=== PATIENT | male | born 1955 | race Caucasian/White ===

== ENCOUNTER 2017-03-17 15:46 | Inpatient (IN) | payer OTHER ==
[~2017-03-17] VITALS: Ht 167.6 cm; Wt 94.1 kg
[2017-03-17] MEDS: DIPHTHERIA/TETANUS/PERTUSSIS 0.5 ML SYR/VIAL IM. ONE ×2 (16:00→16:14)
[2017-03-17] MEDS ORDERED: SODIUM CHLORIDE 0.9% 1000ML 1,000 ML IV STA (16:00)
[2017-03-17] MEDS ORDERED: ONDANSETRON INJ 2 MG/ML 2 ML VIAL IV STA ×2 (16:00→16:44)
[2017-03-17] MEDS ORDERED: LIDO/EPINEPHRINE/SOD BICARB 20 ML VIAL INFIL ONE (16:08)
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
[2017-03-17] MEDS ORDERED: OPTIRAY 320 IV PRN (16:15)
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
[2017-03-17 16:28] LABS: BASO % 0.1 %; BASO ABS # 0.02 K/uL (0-0.2); COMPLETE YES; EOS % 0.8 %; HEMATOCRIT 50.7 % (42-52); IG% 0.6 %; LYMPH % 6.2 %; LYMPH ABS # 0.88 K/uL (1.2-3.4); MEAN CELL VOLUME 88.6 fL (80-100); MEAN CORPUSCULAR HEMOGLOBIN 30.9 pg (25-34); MEAN CORPUSCULAR HGB CONC 34.9 g/dl (32-36); MEAN PLATELET VOLUME 10.7 fL (7.4-10.4); MONO % 5.7 %; NEUT % 86.6 %; PLATELET COUNT 186 K/uL (130-400); RED BLOOD COUNT 5.72 M/uL (4.7-6.1); WHITE BLOOD COUNT 14.27 K/uL (4.8-10.8)
[2017-03-17 16:32] LABS: ISTAT CREATININE 1.5 mg/dl (0.6-1.3); ISTAT IONIZED CALCIUM 1.06 mmol/l (1.12-1.32)
[2017-03-17 16:40] LABS: PARTIAL THROMBOPLASTIN RATIO 0.8; PROTHROMBIN TIME (PATIENT) 10.7 SECONDS (9.0-12.0)
[2017-03-17 16:44] LABS: ALT/SGPT 464 U/L (12-78); BLOOD UREA NITROGEN 22 mg/dl (7-18); BUN/CREATININE RATIO 14.4 (10-20); CALCIUM 8.7 mg/dl (8.5-10.1); CARBON DIOXIDE 25 mmol/L (21-32); CHLORIDE 108 mmol/L (98-107); GLUCOSE 136 mg/dl (70-99); POTASSIUM 3.5 mmol/L (3.5-5.1); SODIUM 141 mmol/L (136-145)
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
[2017-03-17] MEDS: MoRPHine SULFATE 4 MG/ML 1 ML CARP\\VIAL IV PRN ×2 (16:49→17:13)
[2017-03-17 16:50] LABS: ALKALINE PHOSPHATASE 60 U/L (45-117); AST/SGOT 433 U/L (15-37); CKMB/CK RATIO 1.5 (0-3.0)
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
[2017-03-17] MEDS ORDERED: CRS10 PO (17:34)
[2017-03-17] MEDS ORDERED: HYDROmorphone INJ 1 MG/ML SYR IV STA ×2 (17:34→18:15)
[2017-03-17] MEDS ORDERED: TELM1TAB PO (17:35)
[2017-03-17] MEDS ORDERED: D5W AND 1/2NSS 1,000 ML IV SCH (18:21)
[2017-03-17] MEDS ORDERED: ACETAMINOPHEN 325 MG TAB PO PRN (18:30)
[2017-03-17] MEDS ORDERED: ONDANSETRON INJ 2 MG/ML 2 ML VIAL IV PRN (18:30)
[2017-03-17 19:02] LABS: URINE APPEARANCE CLEAR (CLEAR); URINE BILIRUBIN NEG (NEG); URINE COLOR YELLOW; URINE EPITHELIAL CELL AUTO 20-30 /lpf (0-5); URINE NITRITE NEG (NEG); URINE SPECIFIC GRAVITY 1.034 (1.000-1.030); UROBILINOGEN NEG (NEG)
[2017-03-17 19:03] LABS: MANUAL MICROSCOPIC REQUIRED? NO; REVIEW REQ? NO
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
[2017-03-17 20:27] VITALS: BP 187/99; PULSE 70; TEMP 36.9; O2SAT 92; Ht 167.6 cm; Wt 94.1 kg
[2017-03-17] MEDS: D5W AND 1/2NSS + 20MEQ KCL 1,000 ML IV SCH (20:43)
[2017-03-17 21:33] VITALS: BP 155/92; PULSE 70; O2SAT 92
[2017-03-17] MEDS: MoRPHine SULFATE 2 MG/ML CARP IV PRN (21:43)
[2017-03-17 23:29] VITALS: BP 158/85; PULSE 69; TEMP 37; O2SAT 94
[2017-03-18] VITALS (10 sets, daily range): BP systolic 117–166; BP diastolic 72–90; PULSE 67–85; TEMP 36.6–37; O2SAT 93–99
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
[2017-03-18] MEDS: OXYCODONE/ACETAMINOPHEN 5-325 TAB PO PRN ×2 (02:52→07:16)
[2017-03-18] MEDS: MoRPHine SULFATE 2 MG/ML CARP IV PRN ×2 (02:53→07:17)
[2017-03-18] MEDS: D5W AND 1/2NSS + 20MEQ KCL 1,000 ML IV SCH ×3 (04:40→19:47)
[2017-03-18] MEDS: ROSUVASTATIN CALCIUM 10 MG TAB PO SCH (07:17)
[2017-03-18 07:34] LABS: BASO % 0.1 %; BASO ABS # 0.01 K/uL (0-0.2); COMPLETE YES; EOS % 0.4 %; HEMATOCRIT 47.3 % (42-52); IG% 0.3 %; LYMPH % 7.6 %; LYMPH ABS # 1.07 K/uL (1.2-3.4); MEAN CELL VOLUME 90.6 fL (80-100); MEAN CORPUSCULAR HEMOGLOBIN 30.1 pg (25-34); MEAN CORPUSCULAR HGB CONC 33.2 g/dl (32-36); MONO % 6.8 %; NEUT % 84.8 %; PLATELET COUNT 191 K/uL (130-400); RED BLOOD COUNT 5.22 M/uL (4.7-6.1)
[2017-03-18] MEDS ORDERED: MoRPHine SULFATE 1 MG/ML 50 ML PCA CASS ONE (07:44)
--- NOTE | 2017-03-18 07:49 | DIAGNOSTIC IMAGING REPORT ---
CHEST ONE VIEW PORTABLE HISTORY: PNEUMOTHORAX. SUPPOSED TO BE DONE AT 0530 COMPARISON: Chest 03/17/2017. Chest CT 03/17/2017. FINDINGS: The patient's tiny right pneumothorax seen on the recent chest CT is not identified on this study. Small right pleural effusion persists. Bibasilar linear densities are again noted. The heart remains mildly enlarged. Nondisplaced right rib fractures are also better appreciated on the recent chest CT. IMPRESSION: 1. The patient's right pneumothorax is not identified. 2. Small right pleural effusion/hemothorax persists. 3. Bibasilar densities, unchanged. 4. Nondisplaced right rib fractures are better appreciated on the recent chest CT. Electronically signed by: Tucker Dean M.D. 03/18/2017 7:47 AM Dictated Date/Time: 03/18/2017 7:45 AM
[2017-03-18 07:59] LABS: BUN/CREATININE RATIO 14.3 (10-20); CALCIUM 8.5 mg/dl (8.5-10.1); CREATININE 1.2 mg/dl (0.60-1.40)
[2017-03-18] MEDS ORDERED: SODIUM CHLORIDE 0.9% 1000ML 1,000 ML IV SCH (08:00)
[2017-03-18 08:07] LABS: PHOSPHORUS 2.7 mg/dl (2.5-4.9)
[2017-03-18] MEDS: MoRPHine SULFATE 1 MG/ML 50 ML PCA CASS IV PRN ×2 (09:34→10:39)
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
[2017-03-18 10:03] LABS: ALT/SGPT 316 U/L (12-78); AST/SGOT 156 U/L (15-37)
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
[2017-03-18 10:19] LABS: ESTIMATED AVERAGE GLUCOSE 128 mg/dl; HA1C FLAG Normal (Normal)
--- NOTE | 2017-03-18 11:42 | SURGERY PROGRESS NOTE ---
DATE: 03/18/2017 Mr. Graham is in a tremendous amount of pain. I started him on a [employer]YSTER C[employer]URIST pump this morning which made him a bit more lethargic. He has been seen by Dr. Rodney Vu from a pain standpoint and we are adjusting his medications. As he is going to be in pain, Dr. Vu has recommended a thoracic epidural which I agree with. His x-ray this morning shows a very small right pleural effusion but does not appear to be increasing. He is able to take fairly good breath, but he is in a considerable amount of pain. At this point, pain management will be his major issue. His creatinine has improved from 1.5-1.2. We will give him Toradol preliminarily. His hemoglobin is stable.
[2017-03-18] MEDS ORDERED: RAPID SEQUENCE INDUCTION BAG ONE (14:12)
[2017-03-18] MEDS ORDERED: HYDROmorphone INJ 2 MG/ML SYR/VIAL ONE (14:13)
[2017-03-18] MEDS ORDERED: OPTIRAY 320 IV PRN (14:15)
[2017-03-18 14:28] LABS: ISTAT ALLEN TEST Pass; ISTAT ARTERIAL BLOOD GAS HCO3 26 meq/L (19-24); ISTAT ARTERIAL BLOOD GAS PCO2 73 mmHg (35-46); ISTAT ARTERIAL BLOOD GAS PO2 95 mmHg (80-95); ISTAT ARTERIAL BLOOD GAS pH 7.17 (7.35-7.45); ISTAT CARBON DIOXIDE 28 mEq/l (24-31); ISTAT SITE R Radial
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
[2017-03-18] MEDS ORDERED: ICU PROTOCOL FOR HYPERGLYCEMIA PRN (15:30)
--- NOTE | 2017-03-18 15:56 | SURGERY PROGRESS NOTE ---
DATE: 03/18/2017 Mr. Childress was seen again this afternoon. He was in a considerable amount of pain. He was seen by Dr. Rodney Vu from the pain management service and we discussed a thoracic epidural which is to be placed later. We held off on the Toradol for the concern for bleeding until the epidural was in. The patient was a "code purple" as he became quite lethargic and probably had a combination of having too many narcotics on board and some CO2 narcosis. He was given Narcan quickly recovered; however, he had a tremendous amount of pain in his back and his CT scans were repeated. He does have some more atelectasis of the right lower lobe, a small amount of fluid in his chest, but would not intervene at this time. The patient is going to have significant pain which is going to cause other problems. I talked to Dr. Vu and he will be inserting a thoracic epidural hopefully later today, if not tomorrow. He is stable hemodynamically now, he awake and alert, although he is in quite a bit of pain. This is a fine line we will walk between keeping his pain under control and not over sedating him. BYRON
[2017-03-18 16:12] LABS: BASO % 0.1 %; BASO ABS # 0.01 K/uL (0-0.2); COMPLETE YES; EOS % 0.2 %; HEMATOCRIT 44.7 % (42-52); IG% 0.2 %; LYMPH % 5.3 %; LYMPH ABS # 0.87 K/uL (1.2-3.4); MEAN CELL VOLUME 90.5 fL (80-100); MEAN CORPUSCULAR HEMOGLOBIN 30.4 pg (25-34); MEAN CORPUSCULAR HGB CONC 33.6 g/dl (32-36); MEAN PLATELET VOLUME 10.6 fL (7.4-10.4); MONO % 3.6 %; NEUT % 90.6 %; PLATELET COUNT 158 K/uL (130-400); RED BLOOD COUNT 4.94 M/uL (4.7-6.1); WHITE BLOOD COUNT 16.52 K/uL (4.8-10.8)
[2017-03-18] MEDS ORDERED: MIDAZOLAM HCL 1 MG/ML 2ML VIAL ONE (16:28)
[2017-03-18] MEDS ORDERED: FENTANYL CITRATE INJ 50 MCG/1 ML 2 ML VIAL ONE (16:30)
[2017-03-18 16:32] LABS: CALCIUM 7.6 mg/dl (8.5-10.1); CREATININE 1.1 mg/dl (0.60-1.40); MAGNESIUM 2.1 mg/dl (1.8-2.4); POTASSIUM 4.2 mmol/L (3.5-5.1)
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
[2017-03-18 16:53] LABS: ALB/GLOB RATIO 1.2 (0.9-2); CKMB/CK RATIO 0.7 (0-3.0); PHOSPHORUS 2.8 mg/dl (2.5-4.9)
[2017-03-18] MEDS ORDERED: HYDROmorphone INJ 0.5 MG/0.5 ML SYR IV PRN (17:00)
[2017-03-18] MEDS ORDERED: MIDAZOLAM HCL 5 MG/ML 1 ML VIAL IV STA (17:07)
[2017-03-18] MEDS ORDERED: LACTATED RINGER'S 1000ML 500 ML IV PRN (17:11)
[2017-03-18] MEDS ORDERED: SODIUM CHLORIDE 0.9% 1000ML 1,000 ML IV PRN (17:11)
[2017-03-18] MEDS ORDERED: METOCLOPRAMIDE HCL INJ 20 MG in SODIUM CHLORIDE 0.9% 50ML 50 ML IV PRN (17:15)
[2017-03-18] MEDS ORDERED: KETOROLAC TROMETHAMINE 30 MG/ML VIAL IV. PRN (17:15)
[2017-03-18] MEDS ORDERED: EpHEDrine SULFATE INJ 50 MG/ML AMP IV PRN (17:15)
[2017-03-18] MEDS ORDERED: DiphenhydrAMINE HCL 50 MG/ML VIAL IV PRN (17:15)
[2017-03-18] MEDS ORDERED: NALBUPHINE HCL INJ 10 MG/ML AMP IV PRN (17:15)
[2017-03-18] MEDS ORDERED: ONDANSETRON INJ 2 MG/ML 2 ML VIAL IV PRN (17:15)
[2017-03-18] MEDS ORDERED: NALOXONE HCL INJ 0.4 MG/1 ML VIAL/CARP IV PRN (17:15)
[2017-03-18] MEDS ORDERED: FENTANYL CITRATE INJ 50 MCG/1 ML 2 ML VIAL IV ONE (17:15)
[2017-03-18] MEDS ORDERED: MoRPHine SULFATE 2 MG/ML CARP IV PRN (17:15)
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
[2017-03-18] MEDS: NSS EPI PRN (18:02)
[2017-03-18] MEDS: MORPHINE SUL EPI PRN (18:02)
[2017-03-18] MEDS: ALBUT/IPRATROP 3MG/0.5MG NEB 3 ML VIAL INH SCH (20:24)
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
[2017-03-18] MEDS: NO NARCOTICS OR SEDATIVES SCH (23:56)
[2017-03-19] VITALS (17 sets, daily range): BP systolic 121–158; BP diastolic 64–93; PULSE 74–100; TEMP 37–38; O2SAT 91–96
[2017-03-19] MEDS: D5W AND 1/2NSS + 20MEQ KCL 1,000 ML IV SCH (03:44)
[2017-03-19 05:55] LABS: BASO % 0.1 %; BASO ABS # 0.01 K/uL (0-0.2); COMPLETE YES; EOS % 0.9 %; IG% 0.4 %; LYMPH % 10.6 %; MEAN CELL VOLUME 92.4 fL (80-100); MEAN CORPUSCULAR HEMOGLOBIN 30.6 pg (25-34); MEAN CORPUSCULAR HGB CONC 33.1 g/dl (32-36); MEAN PLATELET VOLUME 10.4 fL (7.4-10.4); MONO % 9.7 %; NEUT % 78.3 %; PLATELET COUNT 160 K/uL (130-400); RED BLOOD COUNT 4.87 M/uL (4.7-6.1); WHITE BLOOD COUNT 10.35 K/uL (4.8-10.8)
[2017-03-19] MEDS: ENOXAPARIN 40 MG/0.4 ML SYR SQ SCH (06:11)
[2017-03-19 06:26] LABS: BUN/CREATININE RATIO 11.7 (10-20); CALCIUM 8.2 mg/dl (8.5-10.1); CREATININE 1.1 mg/dl (0.60-1.40); MAGNESIUM 2.2 mg/dl (1.8-2.4); POTASSIUM 4.2 mmol/L (3.5-5.1)
[2017-03-19 06:41] LABS: PHOSPHORUS 2.3 mg/dl (2.5-4.9)
[2017-03-19] MEDS: ALBUT/IPRATROP 3MG/0.5MG NEB 3 ML VIAL INH SCH ×4 (07:09→20:34)
[2017-03-19] MEDS: NO NARCOTICS OR SEDATIVES SCH ×3 (07:42→23:38)
[2017-03-19] MEDS: HYDROCHLOROTHIAZIDE 25 MG TAB PO SCH (07:43)
[2017-03-19] MEDS: TELMISARTAN 40 MG TAB PO SCH (07:44)
--- NOTE | 2017-03-19 07:55 | DIAGNOSTIC IMAGING REPORT ---
CHEST ONE VIEW PORTABLE CLINICAL HISTORY: Hemothorax. COMPARISON STUDY: Chest radiograph and chest CT March 18, 2017. FINDINGS: A pain catheter is noted. Lung volumes are diminished. There is no pneumothorax. A small right pleural effusion is unchanged since prior exam. Bilateral airspace opacities within the lungs have increased. A small amount of right pleural fluid is noted. This may reflect a hemothorax given findings on chest CT. The nondisplaced thoracic spine and rib fractures are not well depicted on this exam due to radiographic technique. Mild mediastinal widening is unchanged. IMPRESSION: 1. Diminished lung volumes with increasing bilateral airspace opacities which could reflect atelectasis or pneumonia. 2. Pulmonary vascular congestion which has increased. 3. Right pleural fluid which is either stable or slightly increased since prior exam. This likely reflects a hemothorax given finding on prior chest CT. Electronically signed by: Jamar Lanier M.D. 03/19/2017 7:53 AM Dictated Date/Time: 03/19/2017 7:48 AM
[2017-03-19] MEDS: ROSUVASTATIN CALCIUM 10 MG TAB PO SCH (08:20)
[2017-03-19] MEDS: LIDODERM (LIDOCAINE) PATCH 5% TD SCH (08:20)
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
--- NOTE | 2017-03-19 12:46 | Pain Management Consultation ---
Pain Consultation Date of Service Mar 19, 2017. Pain Consultation I spoke with the patient, case management, Dr. Davila, and Dr. Ahmadi today about the patient's possible transport to [place]. From a pain management perspective I do not feel that this is a good plan at this time as the patient has finally achieved fairly adequate pain control and is able to utilize his ISP and transfer from bed to chair. He does have a exquisite sensitivity to IV narcotics and did have a code purple secondary to IV narcotics requiring Narcan administration of this time. I feel that a 5-6 hour ambulance ride would be difficult for the patient to tolerate at this time due to pain. At this point I would recommend continued hospitalization to further titrate his narcotics to a point where he has adequate pain control with oral narcotics. I recommend continuation of his epidural catheter at this point. Should he required transport, his epidural catheter should be removed prior to leaving this hospital. This will require timing of his Lovenox dosing to pull his epidural catheter at a appropriate timeframe. I will initiate Nucynta 50 mg by mouth every 4 when necessary pain to start his titration of oral narcotics at this time. No changes were made to his epidural catheter dosing and he will remain on morphine preservative-free 0.5 mg per hour for the time being.
[2017-03-19] MEDS ORDERED: TAPENTADOL HCL 50 MG TAB ONE (13:05)
[2017-03-19] MEDS: TAPENTADOL HCL 50 MG TAB PO PRN ×2 (13:07→23:39)
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
[2017-03-19] MEDS: NSS EPI PRN (17:24)
[2017-03-19] MEDS: MORPHINE SUL EPI PRN (17:24)
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
[2017-03-20] VITALS (18 sets, daily range): BP systolic 128–169; BP diastolic 76–95; PULSE 70–96; TEMP 36.6–37.6; O2SAT 90–95
[2017-03-20 05:38] LABS: BASO % 0.2 %; BASO ABS # 0.02 K/uL (0-0.2); COMPLETE YES; HEMATOCRIT 44.6 % (42-52); IG% 0.4 %; LYMPH % 10.4 %; LYMPH ABS # 1.01 K/uL (1.2-3.4); MEAN CELL VOLUME 92.5 fL (80-100); MEAN CORPUSCULAR HEMOGLOBIN 30.5 pg (25-34); MEAN PLATELET VOLUME 10.5 fL (7.4-10.4); MONO % 11.1 %; NEUT % 74.9 %; PLATELET COUNT 165 K/uL (130-400); RED BLOOD COUNT 4.82 M/uL (4.7-6.1); WHITE BLOOD COUNT 9.72 K/uL (4.8-10.8)
[2017-03-20] MEDS: ENOXAPARIN 40 MG/0.4 ML SYR SQ SCH (06:06)
[2017-03-20 06:07] LABS: BUN/CREATININE RATIO 15.6 (10-20); CALCIUM 8.7 mg/dl (8.5-10.1); CREATININE 1.2 mg/dl (0.60-1.40); MAGNESIUM 2.2 mg/dl (1.8-2.4); POTASSIUM 4.1 mmol/L (3.5-5.1)
[2017-03-20] MEDS: NO NARCOTICS OR SEDATIVES SCH ×3 (07:59→23:59)
[2017-03-20] MEDS: HYDROCHLOROTHIAZIDE 25 MG TAB PO SCH (08:01)
[2017-03-20] MEDS: TELMISARTAN 40 MG TAB PO SCH (08:01)
[2017-03-20] MEDS: LIDODERM (LIDOCAINE) PATCH 5% TD SCH (08:01)
[2017-03-20] MEDS: BISACODYL 5 MG TABEC PO SCH (08:02)
[2017-03-20] MEDS: ROSUVASTATIN CALCIUM 10 MG TAB PO SCH (08:02)
[2017-03-20] MEDS: POLYETHYLENE (MIRALAX) 17 GM PACK PO SCH (08:03)
[2017-03-20] MEDS: ALBUT/IPRATROP 3MG/0.5MG NEB 3 ML VIAL INH SCH ×4 (08:15→21:50)
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
[2017-03-20] MEDS: DOCUSATE SODIUM 100 MG CAP PO SCH ×2 (09:57→21:34)
[2017-03-20] MEDS: TAPENTADOL ER 50 MG TABCR PO SCH ×2 (09:57→21:35)
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
[2017-03-20] MEDS: NSS EPI PRN (13:22)
[2017-03-20] MEDS: MORPHINE SUL EPI PRN (13:22)
[2017-03-20] MEDS: TAPENTADOL HCL 50 MG TAB PO PRN (18:08)
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
[2017-03-21] VITALS (14 sets, daily range): BP systolic 144–171; BP diastolic 82–99; PULSE 66–112; TEMP 36.5–37.1; O2SAT 90–98
[2017-03-21] MEDS: ALBUT/IPRATROP 3MG/0.5MG NEB 3 ML VIAL INH SCH ×4 (07:16→19:05)
[2017-03-21 07:42] LABS: BASO % 0.1 %; BASO ABS # 0.01 K/uL (0-0.2); COMPLETE YES; EOS % 3.5 %; HEMATOCRIT 49.5 % (42-52); IG% 0.4 %; LYMPH % 8.6 %; LYMPH ABS # 0.86 K/uL (1.2-3.4); MEAN CELL VOLUME 92.2 fL (80-100); MEAN CORPUSCULAR HGB CONC 32.5 g/dl (32-36); MEAN PLATELET VOLUME 10.9 fL (7.4-10.4); NEUT % 78.4 %; PLATELET COUNT 198 K/uL (130-400); RED BLOOD COUNT 5.37 M/uL (4.7-6.1); WHITE BLOOD COUNT 9.95 K/uL (4.8-10.8)
[2017-03-21 08:14] LABS: BUN/CREATININE RATIO 18.7 (10-20); CALCIUM 9.5 mg/dl (8.5-10.1); MAGNESIUM 2.4 mg/dl (1.8-2.4)
[2017-03-21] MEDS: TAPENTADOL HCL 50 MG TAB PO PRN ×4 (08:48→23:58)
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
[2017-03-21] MEDS: POLYETHYLENE (MIRALAX) 17 GM PACK PO SCH (09:00)
[2017-03-21] MEDS ORDERED: MAGNESIUM CITRATE 296 ML/BTL PO ONE (09:00)
[2017-03-21] MEDS: DOCUSATE SODIUM 100 MG CAP PO SCH ×2 (09:17→21:02)
[2017-03-21] MEDS: HYDROCHLOROTHIAZIDE 25 MG TAB PO SCH (09:18)
[2017-03-21] MEDS: ROSUVASTATIN CALCIUM 10 MG TAB PO SCH (09:18)
[2017-03-21] MEDS: BISACODYL 5 MG TABEC PO SCH (09:18)
[2017-03-21] MEDS: LIDODERM (LIDOCAINE) PATCH 5% TD SCH ×2 (09:19→16:56)
[2017-03-21] MEDS: TELMISARTAN 40 MG TAB PO SCH (09:19)
[2017-03-21] MEDS ORDERED: HYDROCHLOROTHIAZIDE 25 MG TAB PO STA (09:28)
[2017-03-21] MEDS: TAPENTADOL ER 50 MG TABCR PO SCH ×2 (09:42→21:03)
--- NOTE | 2017-03-21 09:54 | SURGERY PROGRESS NOTE ---
DATE: 03/21/2017 DATE: 03/21/2017 Mr. Graham was seen today on 03/21/2017. He looks good. White count has normalized. Hemoglobin stable. His BUN and creatinine are 19 and 1.0. His CPK has fallen to 775. All in all, I am happy with him. His pain is very well controlled with a thoracic epidural. He is able to work very nicely with the incentive spirometer; however, he still has difficulty with coughing. He was up in a chair much of the day yesterday. We are going to get him walking today in the hallway. I am hopeful we can transfer him back to his [place] in the coming days.
[2017-03-21] MEDS: MoRPHine SULFATE 2 MG/ML CARP IV PRN (13:15)
[2017-03-21] MEDS ORDERED: SODIUM CHLORIDE 0.9% 10ML FLUSH IV ONE (13:32)
[2017-03-21] MEDS ORDERED: NALOXONE HCL INJ 0.4 MG/1 ML VIAL/CARP IV ONE (13:32)
[2017-03-21] MEDS: RANITIDINE IV 50 MG in DEXTROSE 5% 100ML 100 ML IV SCH (16:28)
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
[2017-03-22] VITALS (11 sets, daily range): BP systolic 128–179; BP diastolic 67–104; PULSE 74–98; TEMP 36.5–37; O2SAT 91–96
[2017-03-22] MEDS: RANITIDINE IV 50 MG in DEXTROSE 5% 100ML 100 ML IV SCH ×3 (01:03→16:43)
[2017-03-22] MEDS: MoRPHine SULFATE 2 MG/ML CARP IV PRN ×4 (04:45→19:16)
[2017-03-22] MEDS: ALBUT/IPRATROP 3MG/0.5MG NEB 3 ML VIAL INH SCH ×4 (07:17→20:01)
[2017-03-22] MEDS: TAPENTADOL ER 50 MG TABCR PO SCH ×2 (07:49→21:26)
[2017-03-22] MEDS: LIDODERM (LIDOCAINE) PATCH 5% TD SCH (07:49)
[2017-03-22] MEDS: DOCUSATE SODIUM 100 MG CAP PO SCH ×2 (07:50→20:51)
[2017-03-22] MEDS: POLYETHYLENE (MIRALAX) 17 GM PACK PO SCH (07:50)
[2017-03-22] MEDS: ROSUVASTATIN CALCIUM 10 MG TAB PO SCH (07:50)
[2017-03-22] MEDS: HYDROCHLOROTHIAZIDE 25 MG TAB PO SCH (07:51)
[2017-03-22] MEDS: TELMISARTAN 40 MG TAB PO SCH (07:51)
[2017-03-22] MEDS: BISACODYL 5 MG TABEC PO SCH (07:52)
[2017-03-22 07:54] LABS: BUN/CREATININE RATIO 20.9 (10-20); POTASSIUM 3.9 mmol/L (3.5-5.1)
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
--- NOTE | 2017-03-22 08:05 | DIAGNOSTIC IMAGING REPORT ---
CHEST ONE VIEW PORTABLE CLINICAL HISTORY: 61 years-old Male presenting with R hemothorax, interval change . TECHNIQUE: Portable upright AP view of the chest was obtained. COMPARISON: 03/20/2017. FINDINGS: Interval removal of the catheter overlying the right hemithorax. Numerous external leads overlying the chest degrading evaluation. Allowing for this, cardiac mediastinal silhouette within normal limits. Persistent right basilar opacity with right pleural effusion. No pneumothorax. Previously noted multiple segmental right rib fractures best appreciated on prior CT from 03/18/2017. Upper abdomen normal. IMPRESSION: 1. Persistent right basilar consolidation, likely atelectasis and previously noted pulmonary laceration/contusion. 2. Persistent small right pleural effusion, previously shown to represent hemothorax on CT. 3. No significant change. Electronically signed by: Mynor Joseph M.D. 03/22/2017 8:03 AM Dictated Date/Time: 03/22/2017 8:00 AM
[2017-03-22] MEDS ORDERED: ONDANSETRON INJ 2 MG/ML 2 ML VIAL ONE (09:43)
[2017-03-22] MEDS ORDERED: NURSING VERBAL MED ORDER ONE (09:45)
[2017-03-22] MEDS ORDERED: NIFEdipine 30 MG CR TAB PO STA (09:53)
--- NOTE | 2017-03-22 11:24 | SURGERY PROGRESS NOTE ---
DATE: 03/22/2017 SUBJECTIVE: Mr. Graham is improving. He is ambulating in the hallway. His epidural was out. His BUN and creatinine are normal at 21 and 1.0. His creatinine kinase is down to 508. He looks very good to me. He did undergo a CT scan today which I reviewed in quite frankly I think it looks good. At this point, he has settled down and I think he is to be transferred via ambulance back up to his home in [place] today, which I am in agreement. I did give him my cell number and had him or any of his providers to call me should any problems arise.
[2017-03-22] MEDS: SUCRALFATE 1 GM/10 ML UDC PO SCH ×3 (12:03→20:51)
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
[2017-03-22] MEDS: TAPENTADOL HCL 50 MG TAB PO PRN ×2 (14:06→18:40)
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
[2017-03-23] VITALS (14 sets, daily range): BP systolic 129–156; BP diastolic 61–84; PULSE 69–91; TEMP 36.4–36.9; O2SAT 92–96
[2017-03-23] MEDS: RANITIDINE IV 50 MG in DEXTROSE 5% 100ML 100 ML IV SCH ×3 (01:54→17:32)
[2017-03-23] MEDS: ALBUT/IPRATROP 3MG/0.5MG NEB 3 ML VIAL INH SCH ×4 (06:57→20:10)
[2017-03-23 06:59] LABS: HEMATOCRIT 49.9 % (42-52); MEAN CELL VOLUME 92.4 fL (80-100); MEAN CORPUSCULAR HEMOGLOBIN 29.8 pg (25-34); MEAN CORPUSCULAR HGB CONC 32.3 g/dl (32-36); MEAN PLATELET VOLUME 10.6 fL (7.4-10.4); PLATELET COUNT 232 K/uL (130-400); WHITE BLOOD COUNT 8.81 K/uL (4.8-10.8)
[2017-03-23 07:32] LABS: CALCIUM 8.8 mg/dl (8.5-10.1); CREATININE 1.3 mg/dl (0.60-1.40)
[2017-03-23] MEDS: BISACODYL 5 MG TABEC PO SCH (07:51)
[2017-03-23] MEDS: SUCRALFATE 1 GM/10 ML UDC PO SCH ×4 (07:51→20:56)
[2017-03-23] MEDS: POLYETHYLENE (MIRALAX) 17 GM PACK PO SCH (07:51)
[2017-03-23] MEDS: TAPENTADOL ER 50 MG TABCR PO SCH ×2 (07:51→20:55)
[2017-03-23] MEDS: HYDROCHLOROTHIAZIDE 25 MG TAB PO SCH (07:52)
[2017-03-23] MEDS: TELMISARTAN 40 MG TAB PO SCH (07:52)
[2017-03-23] MEDS: NIFEdipine 30 MG CR TAB PO SCH (07:52)
[2017-03-23] MEDS: DOCUSATE SODIUM 100 MG CAP PO SCH ×2 (07:52→20:57)
[2017-03-23] MEDS: ROSUVASTATIN CALCIUM 10 MG TAB PO SCH (07:52)
[2017-03-23] MEDS: LIDODERM (LIDOCAINE) PATCH 5% TD SCH (07:57)
[2017-03-23] MEDS: MoRPHine SULFATE 2 MG/ML CARP IV PRN ×6 (09:44→21:02)
--- NOTE | 2017-03-23 10:06 | SURGERY PROGRESS NOTE ---
DATE: 03/23/2017 Mr. Graham was seen today on 03/23/2017. His labs reviewed and they looked quite good. Except for the fact that his BUN and creatinine have gone up to 30 and 1.3, which makes me wonder about a possible prerenal. He is still on 2 liters at 92-95% saturations. His heart rate has been normal at 70. He was subsequently transferred back to his own [place] yesterday but apparently there were no beds. At this point, we are going to try and get him set up and to get back to [place]. He is definitely improving, although he still in considerable pain. We will continue to follow along. If he stays in the hospital, I would like to check a chest x-ray in the morning.
[2017-03-23] MEDS ORDERED: TAPENTADOL HCL 50 MG TAB PO ONE (12:25)
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
[2017-03-24] VITALS (9 sets, daily range): BP systolic 112–138; BP diastolic 72–85; PULSE 70–89; TEMP 36.6–37; O2SAT 89–94
[2017-03-24] MEDS: MoRPHine SULFATE 2 MG/ML CARP IV PRN ×9 (00:14→21:24)
[2017-03-24] MEDS: RANITIDINE IV 50 MG in DEXTROSE 5% 100ML 100 ML IV SCH ×2 (00:22→08:17)
[2017-03-24] MEDS: SUCRALFATE 1 GM/10 ML UDC PO SCH ×4 (06:27→21:11)
[2017-03-24] MEDS: ALBUT/IPRATROP 3MG/0.5MG NEB 3 ML VIAL INH SCH ×4 (06:54→19:40)
[2017-03-24] MEDS: ROSUVASTATIN CALCIUM 10 MG TAB PO SCH (08:17)
[2017-03-24] MEDS: DOCUSATE SODIUM 100 MG CAP PO SCH ×2 (08:17→21:11)
[2017-03-24] MEDS: POLYETHYLENE (MIRALAX) 17 GM PACK PO SCH (08:18)
[2017-03-24] MEDS: TAPENTADOL ER 50 MG TABCR PO SCH ×2 (08:18→21:16)
[2017-03-24] MEDS: TELMISARTAN 40 MG TAB PO SCH (08:18)
[2017-03-24] MEDS: BISACODYL 5 MG TABEC PO SCH (08:18)
[2017-03-24] MEDS: HYDROCHLOROTHIAZIDE 25 MG TAB PO SCH (08:18)
[2017-03-24] MEDS: NIFEdipine 30 MG CR TAB PO SCH (08:18)
[2017-03-24] MEDS: LIDODERM (LIDOCAINE) PATCH 5% TD SCH (08:19)
--- NOTE | 2017-03-24 11:57 | DIAGNOSTIC IMAGING REPORT ---
CHEST 2 VIEWS ROUTINE CLINICAL HISTORY: Rib fractures are. Shortness of breath. COMPARISON STUDY: Chest radiograph of 09/19/2016. FINDINGS: There is no pneumothorax. A right pleural effusion is again noted. There is extensive right lower lung airspace opacity which was present on prior exam. Multiple right-sided rib fractures are again noted. Left lower lung opacity favors atelectasis. There is no evidence of pulmonary edema. IMPRESSION: 1. No significant change in a right pleural effusion with extensive right lower lung opacity which could reflect atelectasis or consolidation. 2. Stable elevation of the right hemidiaphragm with right hemithorax volume loss. 3. Demonstration of multiple right-sided rib fractures. No pneumothorax. Electronically signed by: Jamar Lanier M.D. 03/24/2017 11:56 AM Dictated Date/Time: 03/24/2017 11:48 AM
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
[2017-03-24] MEDS: RANITIDINE HCL 150 MG TAB PO SCH (21:11)
[2017-03-25] VITALS (8 sets, daily range): BP systolic 130–150; BP diastolic 74–87; PULSE 76–85; TEMP 36.5–37.1; O2SAT 90–94
[2017-03-25] MEDS: MoRPHine SULFATE 2 MG/ML CARP IV PRN ×7 (01:10→21:12)
[2017-03-25] MEDS: SUCRALFATE 1 GM/10 ML UDC PO SCH ×4 (06:35→21:15)
[2017-03-25] MEDS: ALBUT/IPRATROP 3MG/0.5MG NEB 3 ML VIAL INH SCH ×4 (07:39→19:59)
[2017-03-25] MEDS: DOCUSATE SODIUM 100 MG CAP PO SCH ×2 (07:58→21:15)
[2017-03-25] MEDS: ROSUVASTATIN CALCIUM 10 MG TAB PO SCH (07:58)
[2017-03-25] MEDS: TELMISARTAN 40 MG TAB PO SCH (07:58)
[2017-03-25] MEDS: BISACODYL 5 MG TABEC PO SCH (07:58)
[2017-03-25] MEDS: HYDROCHLOROTHIAZIDE 25 MG TAB PO SCH (07:58)
[2017-03-25] MEDS: POLYETHYLENE (MIRALAX) 17 GM PACK PO SCH (07:58)
[2017-03-25] MEDS: LIDODERM (LIDOCAINE) PATCH 5% TD SCH (07:59)
[2017-03-25] MEDS: NIFEdipine 30 MG CR TAB PO SCH (07:59)
[2017-03-25] MEDS: RANITIDINE HCL 150 MG TAB PO SCH ×2 (07:59→21:15)
[2017-03-25] MEDS ORDERED: POLYETHYLENE (MIRALAX) 17 GM PACK PO SCH (08:30)
[2017-03-25] MEDS: TAPENTADOL ER 50 MG TABCR PO SCH ×2 (08:45→21:18)
--- NOTE | 2017-03-25 09:34 | SURGERY PROGRESS NOTE ---
DATE: 03/25/2017 Mr. Graham has turned the corner. He looks great. He did ambulate in the hallway. He is on room air. His blood pressure is stable. He is still having a significant amount of pain, but it is better. He has a small right pleural effusion that I would not intervene on at this time. I think he looks too good. This should resorb. We will need to follow his serial x-rays. BYRON
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
[2017-03-26] MEDS: MoRPHine SULFATE 2 MG/ML CARP IV PRN ×5 (02:58→12:32)
[2017-03-26] MEDS: SUCRALFATE 1 GM/10 ML UDC PO SCH ×2 (07:10→11:49)
[2017-03-26 07:17] VITALS: BP 147/87; PULSE 74; TEMP 36.6; O2SAT 90
[2017-03-26] MEDS: ALBUT/IPRATROP 3MG/0.5MG NEB 3 ML VIAL INH SCH ×2 (07:47→11:04)
[2017-03-26 07:48] VITALS: PULSE 80; O2SAT 92
[2017-03-26] MEDS: NIFEdipine 30 MG CR TAB PO SCH (07:53)
[2017-03-26] MEDS: RANITIDINE HCL 150 MG TAB PO SCH (07:53)
[2017-03-26] MEDS: DOCUSATE SODIUM 100 MG CAP PO SCH (07:53)
[2017-03-26] MEDS: TELMISARTAN 40 MG TAB PO SCH (07:53)
[2017-03-26] MEDS: ROSUVASTATIN CALCIUM 10 MG TAB PO SCH (07:54)
[2017-03-26] MEDS: POLYETHYLENE (MIRALAX) 17 GM PACK PO SCH (07:54)
[2017-03-26] MEDS: HYDROCHLOROTHIAZIDE 25 MG TAB PO SCH (07:54)
[2017-03-26] MEDS: LIDODERM (LIDOCAINE) PATCH 5% TD SCH (07:55)
[2017-03-26] MEDS: TAPENTADOL ER 50 MG TABCR PO SCH (08:05)
[2017-03-26] MEDS: BISACODYL 5 MG TABEC PO SCH (08:05)
[2017-03-26] MEDS ORDERED: KCL IV SCH (08:45)
[2017-03-26] MEDS ORDERED: TAPENTADOL HCL 50 MG TAB PO PRN (08:45)
[2017-03-26] MEDS ORDERED: SODIUM CHLOR IV SCH (08:45)
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
[2017-03-26 11:08] VITALS: PULSE 78; O2SAT 91
[2017-03-26] MEDS ORDERED: KETOROLAC TROMETHAMINE 30 MG/ML VIAL IV ONE (11:20)
[2017-03-26 11:23] VITALS: BP 142/95; PULSE 64; PULSE 78; TEMP 36.5; O2SAT 93
[2017-03-26 11:30] VITALS: O2SAT 93
[2017-03-26] MEDS ORDERED: ZNT150 PO (11:53)
[2017-03-26] MEDS ORDERED: CRFUDL PO (11:53)
[2017-03-26] MEDS ORDERED: CLC100 PO (11:53)
[2017-03-26] MEDS ORDERED: MRLP17 PO (11:53)
[2017-03-26] MEDS ORDERED: MCR40 PO (11:53)
[2017-03-26] MEDS ORDERED: ACET-1047 PO (11:53)
[2017-03-26] MEDS ORDERED: NIFE1TAB13 PO (11:53)
[2017-03-26] MEDS ORDERED: NCY50 PO (11:53)
[2017-03-26] MEDS ORDERED: HYDR25TA5 PO (11:53)
[2017-03-26] MEDS ORDERED: LDDP5 TD (11:53)
[2017-03-26] MEDS ORDERED: NCYSR50 PO (11:53)
[2017-03-26] MEDS ORDERED: DLC5 PO (11:53)
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
[2017-03-26 12:02] VITALS: BP 142/95; PULSE 78; TEMP 36.5; O2SAT 93
[2017-03-26] MEDS ORDERED: NURSING VERBAL MED ORDER ONE (13:30)
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
== END 2017-03-26 12:40 | disposition short-term general hospital (02) | DRG 963 ==
LOC: EDBD 15:46 → C.EDC 15:48 → C.2T 18:33 → ENRESERV 19:38 → C.MSICU 03-18 14:28 → ENRESERV 03-20 19:28 → C.2T 03-20 20:47 → ENRESERV 03-23 14:15 → C.MED 03-23 15:24
PROVIDERS: ADMIT Surgery; ATTEND Family Medicine
PROC: 0HQ1XZZ Repair Face Skin, External Approach (ICD-10-PCS; principal; 2017-03-17)
PROC: 3E0R33Z Introduction of Anti-inflammatory into Spinal Canal, Percutaneous Approach (ICD-10-PCS; 2017-03-18)
PROC: 3E0R3BZ Introduction of Anesthetic Agent into Spinal Canal, Percutaneous Approach (ICD-10-PCS; 2017-03-18)
PROC: 00HU33Z Insertion of Infusion Device into Spinal Canal, Percutaneous Approach (ICD-10-PCS; 2017-03-18)
DX: S27.2XXA Traumatic hemopneumothorax, initial encounter (principal); J96.02 Acute respiratory failure with hypercapnia; T79.6XXA Traumatic ischemia of muscle, initial encounter; S27.331A Laceration of lung, unilateral, initial encounter; G92 Toxic encephalopathy; J96.01 Acute respiratory failure with hypoxia; S27.321A Contusion of lung, unilateral, initial encounter; N17.9 Acute kidney failure, unspecified; J90 Pleural effusion, not elsewhere classified; J98.11 Atelectasis; K56.7 Ileus, unspecified; I24.8 Other forms of acute ischemic heart disease; I47.1 Supraventricular tachycardia; S22.41XA Multiple fractures of ribs, right side, initial encounter for closed fracture; S22.039A Unspecified fracture of third thoracic vertebra, initial encounter for closed fracture; S22.049A Unspecified fracture of fourth thoracic vertebra, initial encounter for closed fracture; S22.059A Unspecified fracture of T5-T6 vertebra, initial encounter for closed fracture; S22.069A Unspecified fracture of T7-T8 vertebra, initial encounter for closed fracture; G89.11 Acute pain due to trauma; S09.90XA Unspecified injury of head, initial encounter; S01.81XA Laceration without foreign body of other part of head, initial encounter; V28.0XXA Motorcycle driver injured in noncollision transport accident in nontraffic accident, initial encounter; Y92.410 Unspecified street and highway as the place of occurrence of the external cause; T40.2X5A Adverse effect of other opioids, initial encounter; Y92.230 Patient room in hospital as the place of occurrence of the external cause; D72.829 Elevated white blood cell count, unspecified; R94.5 Abnormal results of liver function studies; R74.0 Nonspecific elevation of levels of transaminase and lactic acid dehydrogenase [LDH]; R50.9 Fever, unspecified; R14.2 Eructation; K21.9 Gastro-esophageal reflux disease without esophagitis; K76.0 Fatty (change of) liver, not elsewhere classified; I10 Essential (primary) hypertension; E78.5 Hyperlipidemia, unspecified; E78.00 Pure hypercholesterolemia, unspecified; R73.03 Prediabetes; G47.33 Obstructive sleep apnea (adult) (pediatric); E66.9 Obesity, unspecified; Z68.38 Body mass index [BMI] 38.0-38.9, adult; Z75.1 Person awaiting admission to adequate facility elsewhere; Z79.899 Other long term (current) drug therapy